=== PATIENT | female | born 1955 | race Caucasian/White ===

== ENCOUNTER 2020-09-24 04:56 | Day surgery (SDC) | payer OTHER ==
[2020-09-21 13:38] VITALS: BMI 39.0
[2020-09-24] MEDS ORDERED: MIDAZOLAM HCL 2 MG/2 ML SINGLE DOSE VIAL ONE ×2 (14:55→15:08)
[2020-09-24] MEDS ORDERED: PROPOFOL 20 ML ONE (15:08)
[2020-09-24] MEDS ORDERED: ceFAZolin 2 GRAM PREMIX BAG IVPB ONE (15:15)
[2020-09-24] MEDS ORDERED: ceFAZolin SODIUM 1 GM VIAL ONE (15:17)
[2020-09-24] MEDS ORDERED: EPHEDRINE SULFATE/0.9% NACL/PF 50 MG/10 ML SYRINGE NR ONE (15:24)
[2020-09-24] MEDS ORDERED: ONDANSETRON 4 MG/2 ML VIAL IVPUSH PRN (15:59)
[2020-09-24] MEDS ORDERED: PROMETHAZINE HCL 25 MG/1 ML VIAL IVPUSH PRN (15:59)
[2020-09-24] MEDS ORDERED: oxyCODONE HCL 5 MG TABLET PO PRN (15:59)
[2020-09-24 17:09] VITALS: TEMP 98
[2020-09-24 18:49] VITALS: BP 120/70; PULSE 54
== END 2020-09-24 18:30 | disposition home or self-care (01) ==
LOC: JASU-SURG 04:56
PROVIDERS: ATTEND Obstetrics & Gynecology
PROC: 0UB98ZX Excision of Uterus, Via Natural or Artificial Opening Endoscopic, Diagnostic (ICD-10-PCS; principal; 2020-09-24 14:00)
DX: N84.0 Polyp of corpus uteri (principal)
CPT/HCPCS: 88305-TC; 94760